=== PATIENT | female | born 1985 | race Caucasian/White ===

== ENCOUNTER 2017-03-02 02:03 | Emergency (ER) | payer SELFPAY ==
[~2017-03-02] VITALS: Ht 165.1 cm; Wt 77.0 kg
[~2017-03-02 02:03] MED LIST: ADDE30TA PO; GUAI100S6 PO; REST30CA PO; VENTAER INH; XANA0.5T PO; ZITH250T PO
[2017-03-02 02:07] VITALS: BP 170/105; PULSE 106; RESP 16; TEMP 98; O2SAT 100
--- NOTE | 2017-03-02 02:22 | PD ---
HPI Chief Complaint: Medical Clearance Time Seen by Provider: 02:22 Travel History International Travel<30 days: No Contact w/Intl Traveler<30days: No Traveled to known affect area: No History of Present Illness HPI 31-year-old female came to the emergency room with history of opiate withdrawal. Patient has been using Dilaudid 3-4 pills every [address] off the [address]. She last used 4-5 hours ago she said. She is feeling very anxious and restless. 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 She has an appointment at the clinic on the March 13. She was awake and answering questions appropriately. Patient is slightly tachycardic and hypertensive in triage. [facility] Past Medical History Narrative Medical List of her past medical, surgical, social and family history was reviewed from the nursing note. ADHD: Yes Anxiety: Yes Depression: Yes Cardiovascular Problems: No Diabetes: No Diminished Hearing: No Gastrointestinal Disorders: Yes (Hep C) Glaucoma: No Genitourinary: No Hepatitis: No Hiatal Hernia: No Hypertension: No Immune Disorder: No Implanted Vascular Access Dvce: No Musculoskeletal: No Neurologic: Yes Psychiatric: Yes (ADHD) Reproductive: No Respiratory: No Seizures: Yes (As a child age 4 years) Thyroid Disease: No ?: Not LMP: 02/15/17 : 1 : 1 Past Surgical History Oral Surgery: Yes (wisdom teeth removed) Tonsillectomy: Yes Other Surgery: Yes Social History Alcohol Use: No (PT STATES SHE HAS BEEN CLEAN FOR YEARS ) Tobacco Use: Yes (1 1/2 PPD) Substance Use: No (DILAUDID, METH, MARIJUANA HX OF) Allergies-Medications (Allergen,Severity, Reaction): Coded Allergies: Morphine (Verified Allergy, Mild, BURNING, 03/02/17) Comments List of her allergies reviewed from the nursing note. Reported Meds & Prescriptions Reported Meds & Active Scripts Active Zofran Odt (Ondansetron Odt) 4 Mg Tab 4 Mg SL Q6HR PRN Vistaril (Hydroxyzine Pamoate) 25 Mg Cap 25 Mg PO Q6H PRN Clonidine (Clonidine HCl) 0.1 Mg Tab 0.1 Mg PO BID Reported Temazepam Unknown Strength Cap Unknown Dose PO HS PRN Xanax (Alprazolam) 1 Mg Tab 1 Mg PO DAILY PRN Adderall (Amphetamine-Dextroamphetamine) 10 Mg Tab 20 Mg PO EVENING Avoid late evening doses. Space doses at least 4 to 6 hours if more than once/day dosing. Adderall (Amphetamine-Dextroamphetamine) 30 Mg Tab 60 Mg PO AM Avoid late evening doses. Space doses at least 4 to 6 hours if more than once/day dosing. Narrative Medication List of her home medications reviewed from the nursing note. Review of Systems Except as stated in HPI: all other systems reviewed are Neg Physical Exam Narrative GENERAL: Awake, alert, anxious SKIN: Focused skin assessment warm/dry. HEAD: Atraumatic. Normocephalic. EYES: Pupils equal and round, 5 mm bilaterally. No scleral icterus. No injection or drainage. ENT: No nasal bleeding or discharge. Mucous membranes pink and moist. NECK: Trachea midline. No JVD. CARDIOVASCULAR: Regular rate and rhythm. No murmur appreciated. RESPIRATORY: No accessory muscle use. Clear to auscultation. Breath sounds equal bilaterally. GASTROINTESTINAL: Abdomen soft, non-tender, nondistended. Hepatic and splenic margins not palpable. MUSCULOSKELETAL: No obvious deformities. No clubbing. No cyanosis. No edema. NEUROLOGICAL: Awake and alert. No obvious cranial nerve deficits. Motor grossly within normal limits. Normal speech. PSYCHIATRIC: Appropriate mood and affect; insight and judgment normal. Data Data Last Documented VS Vital Signs Date Time Temp Pulse Resp B/P Pulse Ox O2 Delivery O2 Flow Rate FiO2 03/02/17 03:50 96 16 128/85 99 Room Air 03/02/17 02:07 98.0 Orders Clonidine (Catapres) (03/02/17 02:30) Hydroxyzine Hcl (Atarax) (03/02/17 02:30) Ondansetron Odt (Zofran Odt) (03/02/17 02:30) Loperamide (Imodium) (03/02/17 02:30) Ibuprofen (Motrin) (03/02/17 04:00) MDM Medical Decision Making Medical Screen Exam Complete: Yes Emergency Medical Condition: Yes Medical Record Reviewed: Yes Differential Diagnosis Opiate withdrawal Narrative Course 2:37 AM patient has been given by mouth clonidine,. Atarax, by mouth Zofran and by mouth loperamide. I will reassess her in a bit. I did let her know that my intention was not to give her any narcotic medication. 3:44 AM patient seems more comfortable and blood pressure has come down. I'm comfortable discharging her at this point. She'll go home with the same medications that she has received here. I have recommended Alexi Stewart to her boyfriend. Procedures EKG Prior to Arrival: No Diagnosis Primary Impression: Opiate withdrawal Referrals: Primary Care Physician 2 days Additional Instructions: Try to go through drug rehabilitation at [facility]. Take the medication as per the prescription direction. Return to the ER if the condition worsens or any other new concerns. Med/Other Pt SpecificInfo: Prescription(s) given Scripts Ondansetron Odt (Zofran Odt)4 Mg Tab4 Mg SL Q6HR PRN (Nausea/Vomiting) #20 TAB Ref 0 Prov:Maria Teresa Singleton MD 03/02/17 Hydroxyzine Pamoate (Vistaril)25 Mg Cap25 Mg PO Q6H PRN (anxiety) #28 CAP Ref 0 Prov:Maria Teresa Singleton MD 03/02/17 Clonidine 0.1 Mg Tab0.1 Mg PO BID #20 TAB Ref 0 Prov:Maria Teresa Singleton MD 03/02/17 Disposition: 01 DISCHARGE HOME Condition: Stable Maria Teresa Singleton MD Mar 02, 2017 02:22
[2017-03-02] MEDS ORDERED: hydrOXYzine HCL 50 MG TAB PO ONE (02:30)
[2017-03-02] MEDS ORDERED: LOPERAMIDE HCL 2 MG CAP PO ONE (02:30)
[2017-03-02] MEDS ORDERED: ONDANSETRON ODT 4 MG TAB PO ONE (02:30)
[2017-03-02] MEDS ORDERED: cloNIDine HCL 0.1 MG TAB PO ONE (02:30)
[2017-03-02] MEDS ORDERED: ADDE30TA PO (02:42)
[2017-03-02] MEDS ORDERED: ADDE10 PO (02:42)
[2017-03-02] MEDS ORDERED: TEMA7.5C PO (02:42)
[2017-03-02] MEDS ORDERED: XANA1TAB2 PO (02:42)
[2017-03-02 03:07] VITALS: BP 175/110; PULSE 88; RESP 16; O2SAT 100
[2017-03-02] MEDS ORDERED: VIST25CA PO (03:46)
[2017-03-02] MEDS ORDERED: CLON0.1T PO (03:46)
[2017-03-02] MEDS ORDERED: ZOFR4TAB3 SL (03:47)
[2017-03-02 03:50] VITALS: BP 128/85; PULSE 96; RESP 16; O2SAT 99
[2017-03-02] MEDS ORDERED: IBUPROFEN 600 MG TAB PO ONE (04:00)
== END 2017-03-02 04:46 | disposition home or self-care (01) ==
LOC: NEPE 02:03
DX: F11.23 Opioid dependence with withdrawal (principal); R00.0 Tachycardia, unspecified; B19.20 Unspecified viral hepatitis C without hepatic coma; I10 Essential (primary) hypertension; F17.210 Nicotine dependence, cigarettes, uncomplicated
CPT/HCPCS: 99282

== ENCOUNTER 2017-03-25 22:04 | Emergency (ER) | payer SELFPAY ==
[~2017-03-25] VITALS: Ht 165.1 cm; Wt 82.3 kg
[~2017-03-25 22:04] MED LIST changes: +ADDE10 PO; +CLON0.1T PO; -GUAI100S6 PO; -REST30CA PO; +TEMA7.5C PO; -VENTAER INH; +VIST25CA PO; -XANA0.5T PO; +XANA1TAB2 PO; -ZITH250T PO; +ZOFR4TAB3 SL
[2017-03-25 22:17] VITALS: BP 133/96; PULSE 74; RESP 16; TEMP 98.3; O2SAT 98
[2017-03-25 22:41] VITALS: BP 140/103; PULSE 85; RESP 16; O2SAT 98
[2017-03-25] MEDS ORDERED: CLON0.1T PO (22:48)
[2017-03-25] MEDS ORDERED: PENI500T PO (22:48)
[2017-03-25] MEDS ORDERED: IBUP800T23 PO (22:48)
[2017-03-25] MEDS ORDERED: AMLO5 PO (22:50)
--- NOTE | 2017-03-25 22:52 | PD ---
HPI Chief Complaint: Oral / Dental Pain or Problem Time Seen by Provider: 22:40 Travel History International Travel<30 days: No Contact w/Intl Traveler<30days: No Traveled to known affect area: No History of Present Illness HPI 31 year-old female presents to the emergency department by private transportation with significant other for complaint of left-sided facial pain. Patient's concerned about possible dental pain and jaw pain. Patient states she 's had chronic jaw pain for years and more recently the past 5 days has had increasing jaw pain and dental pain. No fever or chills. Patient denies history of heart murmur and is not diabetic. Patient states pain radiates to the left ear. Patient is not noticed any facial swelling. Patient denies . PFSH Past Medical History Narrative Medical ADHD, anxiety depression, dental extraction, tonsillectomy; tobacco use; nursing notes reviewed ADHD: Yes Anxiety: Yes Depression: Yes Cardiovascular Problems: No Diabetes: No Diminished Hearing: No Gastrointestinal Disorders: Yes (Hep C) Glaucoma: No Genitourinary: No Hepatitis: No Hiatal Hernia: No Hypertension: No Immune Disorder: No Implanted Vascular Access Dvce: No Musculoskeletal: No Neurologic: Yes Psychiatric: Yes (ADHD) Reproductive: No Respiratory: No Immunizations Current: Yes Seizures: Yes (As a child age 4 years) Thyroid Disease: No Tetanus Vaccination: < 5 Years Influenza Vaccination: No ?: Not LMP: 10 days ago : 1 : 1 Past Surgical History Oral Surgery: Yes (wisdom teeth removed) Tonsillectomy: Yes Other Surgery: Yes Social History Alcohol Use: No (PT STATES SHE HAS BEEN CLEAN FOR YEARS ) Tobacco Use: Yes (1 pk) Substance Use: No (DILAUDID, METH, MARIJUANA HX OF) Allergies-Medications (Allergen,Severity, Reaction): Coded Allergies: Morphine (Verified Allergy, Mild, BURNING, 03/25/17) Reported Meds & Prescriptions Reported Meds & Active Scripts Active Norvasc (Amlodipine Besylate) 5 Mg Tab 5 Mg PO DAILY Clonidine (Clonidine HCl) 0.1 Mg Tab 0.1 Mg PO BID PRN Ibuprofen 800 Mg Tab 800 Mg PO Q8H PRN Penicillin V Potassium 500 Mg Tab 500 Mg PO Q6H 7 Days Clonidine (Clonidine HCl) 0.1 Mg Tab 0.1 Mg PO BID Reported Temazepam Unknown Strength Cap Unknown Dose PO HS PRN Xanax (Alprazolam) 1 Mg Tab 1 Mg PO DAILY PRN Adderall (Amphetamine-Dextroamphetamine) 10 Mg Tab 20 Mg PO EVENING Avoid late evening doses. Space doses at least 4 to 6 hours if more than once/day dosing. Adderall (Amphetamine-Dextroamphetamine) 30 Mg Tab 60 Mg PO AM Avoid late evening doses. Space doses at least 4 to 6 hours if more than once/day dosing. Review of Systems Except as stated in HPI: all other systems reviewed are Neg General / Constitutional: No: Fever, Chills HENT: Positive: Dental Difficulties, Earache, No: Neck Pain Cardiovascular: No: Chest Pain or Discomfort Respiratory: No: Shortness of Breath Gastrointestinal: No: Vomiting Genitourinary: No: Flank Pain Musculoskeletal: No: Myalgias, Arthralgias Psychiatric: Positive: Substance Abuse (February 2017) Hematologic/Lymphatic: No: Lymph Node Enlargement Physical Exam Narrative GENERAL: Well-developed well-nourished female in no acute distress no respiratory distress SKIN: Warm and dry. HEAD: Normocephalic. EYES: No scleral icterus. No injection or drainage. ENT: Extensively poor dentition with third molars missing #14 tooth jose decay with mild gingival edema/induration but no fluctuance. NECK: Supple, trachea midline. No JVD or lymphadenopathy. CARDIOVASCULAR: Regular rate and rhythm without murmurs, gallops, or rubs. RESPIRATORY: Breath sounds equal bilaterally. No accessory muscle use. GASTROINTESTINAL: Abdomen soft, non-tender, nondistended. MUSCULOSKELETAL: No cyanosis, or edema. BACK: Nontender without obvious deformity. No CVA tenderness. Data Data Last Documented VS Vital Signs Date Time Temp Pulse Resp B/P Pulse Ox O2 Delivery O2 Flow Rate FiO2 03/25/17 22:41 85 16 140/103 98 Room Air 03/25/17 22:17 98.3 MDM Medical Decision Making Medical Screen Exam Complete: Yes Emergency Medical Condition: Yes Medical Record Reviewed: Yes Differential Diagnosis Dentalgia, dental abscess, TMJ Narrative Course Patient is stable for outpatient management with oral antibiotics and follow-up with dentist no acute infectious process no tachycardia; patient also requesting medication refill for clonidine. Patient is given a refill for clonidine to be taken as needed based on blood pressure parameters; for hypertension patient is given prescription of Norvasc 5 mg to take daily; patient is also encouraged to follow-up with primary care provider and given resource of his [facility] and the [facility] as well as encouraged her to call case management to see if she qualifies as a [facility] patient Diagnosis Primary Impression: Dentalgia Additional Impressions: Medication refill HTN (hypertension) Referrals: [facility] 1 day follow up for appointment Dentist call for appointment Patient Instructions: General Instructions Additional Instructions: Complete course of antibiotic as prescribed Take Norvasc as prescribed for blood pressure management and then clonidine as needed based on provided blood pressure elevated parameters--clonidine is not to be taken on a daily basis Follow-up with primary care provider resources such as [facility] and [facility] offered as resource as well as patient can contact case management to evaluate for [facility] Follow-up with dentist regarding dental disease Take weight-based ibuprofen for pain management only as needed Return to the emergency department for any concerns or change in condition Med/Other Pt SpecificInfo: Prescription(s) given Scripts Amlodipine (Norvasc)5 Mg Tab5 Mg PO DAILY #30 TAB Ref 0 Prov:Giovanna Moya MD 03/25/17 Clonidine 0.1 Mg Tab0.1 Mg PO BID PRN (SBP>160, DBP>90) #15 TAB Ref 0 Prov:Giovanna Moya MD 03/25/17 Ibuprofen 800 Mg [id number] Mg PO Q8H PRN (PAIN GREATER THAN 6) #10 TAB Ref 0 Prov:Giovanna Moya MD 03/25/17 Penicillin V Potassium 500 Mg [id number] Mg PO Q6H 7 Days Ref 0 Prov:Giovanna Moya MD 03/25/17 Disposition: 01 DISCHARGE HOME Condition: Stable Giovanna Moya MD March 25, 2017 22:52
== END 2017-03-25 23:00 | disposition home or self-care (01) ==
LOC: PHEFT 22:04
DX: K08.89 Other specified disorders of teeth and supporting structures (principal); I10 Essential (primary) hypertension; B19.20 Unspecified viral hepatitis C without hepatic coma; F17.210 Nicotine dependence, cigarettes, uncomplicated; Z76.0 Encounter for issue of repeat prescription
CPT/HCPCS: 99282

== ENCOUNTER 2018-01-16 08:04 | Emergency (ER) | payer SELFPAY ==
[~2018-01-16] VITALS: Ht 165.1 cm; Wt 88.0 kg
[~2018-01-16 08:04] MED LIST changes: +AMLO5 PO; +IBUP1TAB7 PO; +PENI500T PO; -VIST25CA PO; -ZOFR4TAB3 SL
[2018-01-16 08:06] VITALS: BP 138/78; PULSE 110; RESP 18; TEMP 97.7; O2SAT 98
--- NOTE | 2018-01-16 08:16 | PD ---
HPI Chief Complaint: Edema Time Seen by Provider: 08:14 Travel History International Travel<30 days: No Contact w/Intl Traveler<30days: No Traveled to known affect area: No History of Present Illness HPI Patient presents for bilateral lower extremity edema since yesterday morning. Denies any change in diet or salty foods. Denies . Painful to ambulate. Denies any chest pain shortness of breath urinary or bowel symptoms. Past medical history for hypertension insomnia and anxiety. Compliant with Adderall, amlodipine alprazolam and temazepam. Denies any history of heart failure. PFSH Past Medical History ADHD: Yes Anxiety: Yes Depression: Yes Cardiovascular Problems: No Diabetes: No Diminished Hearing: No Gastrointestinal Disorders: Yes (Hep C) Glaucoma: No Genitourinary: No Hepatitis: No Hiatal Hernia: No Hypertension: No Immune Disorder: No Implanted Vascular Access Dvce: No Musculoskeletal: No Neurologic: Yes Psychiatric: Yes (ADHD) Reproductive: No Respiratory: No Immunizations Current: Yes Seizures: Yes (As a child age 4 years) Thyroid Disease: No ?: Not LMP: 12/2017 : 1 : 1 Past Surgical History Oral Surgery: Yes (wisdom teeth removed) Tonsillectomy: Yes Other Surgery: Yes Social History Alcohol Use: No (PT STATES SHE HAS BEEN CLEAN FOR YEARS ) Tobacco Use: Yes (1 pk) Substance Use: No (DILAUDID, METH, MARIJUANA HX OF) Allergies-Medications (Allergen,Severity, Reaction): Coded Allergies: morphine (Unverified Allergy, Mild, BURNING, 01/16/18) Reported Meds & Prescriptions Reported Meds & Active Scripts Active Hydrochlorothiazide 12.5 Mg Cap 12.5 Mg PO DAILY Keflex (Cephalexin) 500 Mg Cap 500 Mg PO Q12HR 10 Days Norvasc (Amlodipine Besylate) 5 Mg Tab 5 Mg PO DAILY Reported Alprazolam 0.5 Mg Tab 0.5 Mg PO DAILY PRN Temazepam Unknown Strength Cap Unknown Dose PO HS PRN Adderall (Amphetamine-Dextroamphetamine) 10 Mg Tab 20 Mg PO EVENING Avoid late evening doses. Space doses at least 4 to 6 hours if more than once/day dosing. Adderall (Amphetamine-Dextroamphetamine) 30 Mg Tab 60 Mg PO AM Avoid late evening doses. Space doses at least 4 to 6 hours if more than once/day dosing. Review of Systems General / Constitutional: No: Fever Eyes: No: Visual changes HENT: No: Headaches Cardiovascular: No: Chest Pain or Discomfort Respiratory: No: Shortness of Breath Gastrointestinal: No: Abdominal Pain Genitourinary: No: Dysuria Musculoskeletal: Positive: Edema, Pain Skin: No Rash Neurologic: No: Weakness Psychiatric: No: Depression Endocrine: No: Polydipsia Hematologic/Lymphatic: No: Easy Bruising Physical Exam Narrative GENERAL: Well-nourished, well-developed patient. SKIN: Focused skin assessment warm/dry. HEAD: Normocephalic. EYES: No scleral icterus. No injection or drainage. NECK: Supple, trachea midline. No JVD or lymphadenopathy. CARDIOVASCULAR: Regular rate and rhythm without murmurs, gallops, or rubs. RESPIRATORY: Breath sounds equal bilaterally. No accessory muscle use. GASTROINTESTINAL: Abdomen soft, non-tender, nondistended. MUSCULOSKELETAL: No cyanosis, or edema. BACK: Nontender without obvious deformity. No CVA tenderness. Examination of bilateral lower extremities does reveal bilateral edema with negative Homans and splotchy erythema Data Data Last Documented VS Vital Signs Date Time Temp Pulse Resp B/P (MAP) Pulse Ox O2 Delivery O2 Flow Rate FiO2 01/16/18 08:06 97.7 110 18 138/78 (98) 98 Orders Orders Basic Metabolic Panel (Bmp) (01/16/18 08:14) Furosemide (Lasix) (01/16/18 09:15) Potassium Chloride (Kcl) (01/16/18 09:15) Labs Laboratory Tests Test 01/16/18 08:36 Blood Urea Nitrogen 7 MG/DL Creatinine 0.64 MG/DL Random Glucose 93 MG/DL Calcium Level 8.3 MG/DL Sodium Level 138 MEQ/L Potassium Level 3.5 MEQ/L Chloride Level 104 MEQ/L Carbon Dioxide Level 24.2 MEQ/L Anion Gap 10 MEQ/L Estimat Glomerular Filtration Rate 109 ML/MIN MDM Medical Decision Making Medical Screen Exam Complete: Yes Emergency Medical Condition: Yes Differential Diagnosis Fluid retention, cellulitis, heart failure Narrative Course Assessment plan discussed with significant other and patient at bedside. BMP within normal limits. Single dose of by mouth Lasix and potassium was provided. I think a diuretic would be appropriate for fluid retention and improved blood pressure control. Diagnosis Primary Impression: Fluid retention in legs Patient Instructions: General Instructions Additional Instructions: Encouraged to observe salt in diet, elevate lower extremities unable, considers regular use of support hose. Anabiotic and diuretic as prescribed. Follow-up with PCP. Return to emergency room with any onset of new symptoms. Med/Other Pt SpecificInfo: Prescription(s) given Scripts Hydrochlorothiazide (Hydrochlorothiazide) 12.5 Mg Cap 12.5 MG PO DAILY for fluid retention, #30 CAP 0 Refills Prov: Seven Grayson MD 01/16/18 Cephalexin (Keflex) 500 Mg Cap 500 MG PO Q12HR for Infection for 10 Days, #20 CAP 0 Refills Prov: Seven Grayson MD 01/16/18 Disposition: 01 DISCHARGE HOME Condition: Good Seven Grayson MD Jan 16, 2018 08:16
[2018-01-16] MEDS ORDERED: ALPR0.5T3 PO (08:21)
[2018-01-16 08:54] LABS: BICARBONATE 24.2 MEQ/L (21.0-32.0); CALCIUM 8.3 MG/DL (8.5-10.1)
[2018-01-16 08:58] LABS: CREATININE 0.64 MG/DL (0.50-1.00)
[2018-01-16] MEDS ORDERED: CEPH-460 PO (09:09)
[2018-01-16] MEDS ORDERED: HYDR12.57 PO (09:09)
[2018-01-16] MEDS ORDERED: FUROSEMIDE 20 MG TAB PO ONE (09:15)
[2018-01-16] MEDS ORDERED: POTASSIUM CHLORIDE 20 MEQ CONTROLLED RELEASE TAB PO ONE (09:15)
== END 2018-01-16 09:33 | disposition home or self-care (01) ==
LOC: PHED 08:04
DX: R60.0 Localized edema (principal); B19.20 Unspecified viral hepatitis C without hepatic coma; Z72.0 Tobacco use
CPT/HCPCS: 80048; 99283